=== PATIENT | female | born 1995 | race Caucasian/White ===

== ENCOUNTER → 2021-09-01 | Outpatient (CLI) | payer MEDICAID, OTHER | END | disposition home or self-care (01) | LOC: LABWHC1 20:10 | PROVIDERS: ATTEND Internal Medicine Infectious Disease | DX: Z20.822 Contact with and (suspected) exposure to COVID-19 (principal) | CPT/HCPCS: 87635 ==

== ENCOUNTER → 2021-09-03 | Outpatient (CLI) | payer MEDICAID, OTHER | END | disposition home or self-care (01) | LOC: LABWHC1 11:04 | PROVIDERS: ATTEND Emergency Medicine | DX: Z20.822 Contact with and (suspected) exposure to COVID-19 (principal) | CPT/HCPCS: 87635 ==

== ENCOUNTER → 2022-05-16 | Outpatient (CLI) | payer MEDICAID ==
--- NOTE | 2022-05-17 07:19 | US ---
EXAMINATION TYPE: Transabdominal DATE OF EXAM: 05/16/2022 4:33 PM COMPARISON: NONE CLINICAL HISTORY: Z36.89 ENCOUNTER FOR OTHER SPECIFIED SCR. confirm dates EXAM PERFORMED: Transabdominal (TA) EXAM MEASUREMENTS: GESTATIONAL AGE / DATING Physician Established: Not yet established Dates by LMP: (10 weeks/1 days) EDC: 12/11/22 Dates by First Scan: No previous this is first scan Dates by Current Scan for: (10 weeks/4 days) EDC: 12/08/22 MATERNAL ANATOMY Uterus: 11.0 x 6.0 x 8.0cm Right Ovary: 2.8 x 1.8 x 1.5cm Left Ovary: 3.9 x 3.1 x 1.6cm Post CDS / Adnexa: wnl Presence of free fluid: no GESTATION / SURVEY CRL: 3.6cm (10 weeks/4 days) Yolk Sac (normal less than 6mm): 5.7mm Heart Rate: 167 bpm Rhythm: Normal IUP: Viable IUP Date of LMP: 03/06/22 Beta HcG (if available): Not available at this time IMPRESSION: Single viable intrauterine .
== END | disposition home or self-care (01) ==
LOC: RADUSWWP 16:10
PROVIDERS: ATTEND Obstetrics & Gynecology
DX: Z36.89 Encounter for other specified antenatal screening (principal); Z3A.10 10 weeks gestation of pregnancy
CPT/HCPCS: 76801

== ENCOUNTER → 2022-07-17 | Outpatient (CLI) | payer MEDICAID ==
--- NOTE | 2022-07-18 07:49 | US ---
EXAMINATION TYPE: US OB anatomy transabd DATE OF EXAM: 07/17/2022 COMPARISON: NONE HISTORY: O36.62X0 MATERNAL CARE FOR EXCESS GROWTH, SE Anatomy exam TECHNIQUE: OBTA EXAM MEASUREMENTS: GESTATIONAL AGE / DATING Physician Established: (19 weeks/0 days) EDC: 12/11/2022 Dates by LMP: (19 weeks/0 days) EDC: 12/11/2022 Dates by First Scan: (19 weeks/3 days) EDC: 12/08/2022 Dates by Current Scan for: (19 weeks/1 days) EDC: 12/10/2022 SURVEY IUP: Single PLACENTA: Posterior PREVIA: No previa - post void bladder placental tip was 3.7cm from internal os LIGIA: 16.1 cm Normal CERVICAL LENGTH (transabdominal: norm > 3.0cm): 3.7 cm BIOMETRY PRESENTATION: Variable BPD: 4.2 cm 18 weeks / 6 days HC: 16.2 cm 19 weeks / 0 days AC: 13.4 cm 18 weeks / 6 days FL: 3.1 cm 19 weeks / 4 days ESTIMATED WEIGHT IN GRAMS: 276 grams ESTIMATED WEIGHT IN LBS/OZ: 0 lbs. 10 oz. WEIGHT PERCENTAGE BASED ON ESTABLISHED DATE: 53 % HC/AC: 1.2 Normal FL/AC: 23 Normal HEART RATE: 143 bpm RHYTHM: Normal ANATOMY SEEN (within normal limits): * Lateral Vent (< 1 cm) 0.6 cm * Cisterna Magna (< 1.1 cm) 0.3 cm * Nuchal Fold (< 0.6 cm) 0.2 cm * Cerebellum (varies with age) 19.0 cm Choroid Plexus (bilateral) Midline Falx Cavus Septi Pellucidi Four Chamber Heart Outflow tracts: LVOT/RVOT Stomach Situs Diaphragm Kidneys (bilateral) Bladder Cord Insert Three Vessel Cord Longitudinal Spine Transverse Spine Arms (bilateral) Legs (bilateral) ANATOMY NOT SEEN: Nose / Lips - due to position IMPRESSION: 1. Single intrauterine gestation estimated at 19 weeks 1 day gestation based on current ultrasound. T his have a calculated EDC of 12/10/2022, correlate this with the physician's established EDC 12/11/2022. 2. Cardiac activity measures 143 bpm.
== END | disposition home or self-care (01) ==
LOC: RADUSWWP 15:53
PROVIDERS: ATTEND Obstetrics & Gynecology
DX: O36.62X0 Maternal care for excessive fetal growth, second trimester, not applicable or unspecified (principal); Z3A.19 19 weeks gestation of pregnancy
CPT/HCPCS: 76811

== ENCOUNTER → 2022-11-27 | Outpatient (CLI) | payer MEDICAID ==
--- NOTE | 2022-11-27 11:51 | US ---
EXAMINATION TYPE: US OB >= 14 wk fetus DATE OF EXAM: 11/27/2022 COMPARISON: None CLINICAL HISTORY: O36.5930 SMALL FOR DATES 3RD TRIMESTER, growth, baby has been consistently 2 weeks behind dates TECHNIQUE: OBTA GESTATIONAL AGE / DATING Physician Established: (38 weeks/0 days) EDC: 12/11/2022 Dates by LMP: (38 weeks/0 days) EDC: 12/11/2022 Dates by First Scan: (37 weeks/4 days) EDC: 12/08/2022 Dates by Current Scan: (36 weeks/0 days) EDC: 12/25/2022 SURVEY IUP: Single PLACENTA: Left Fundal PREVIA: No Previa LIGIA: 14.9 cm Normal CERVICAL LENGTH (transabdominal: norm > 3.0cm): 3.8 cm BIOMETRY PRESENTATION: Vertex LIE: Longitudinal BPD: 8.9 cm 36 weeks / 1 days HC: 31.2 cm 34 weeks / 6 days AC: 32.6 cm 36 weeks / 4 days FL: 7.3 cm 37 weeks / 3 days ESTIMATED WEIGHT IN GRAMS: 2968 grams ESTIMATED WEIGHT IN LBS/OZ: 6 lbs. 9 oz. WEIGHT PERCENTAGE BASED ON ESTABLISHED DATES: 25% HC/AC: 1.0 Normal FL/AC: 22.4 Normal HEART RATE: 125 bpm RHYTHM: Normal IMPRESSION: Single viable intrauterine .
== END | disposition home or self-care (01) ==
LOC: RADUSWWP 09:43
PROVIDERS: ATTEND Obstetrics & Gynecology
DX: O36.63X0 Maternal care for excessive fetal growth, third trimester, not applicable or unspecified (principal); Z3A.37 37 weeks gestation of pregnancy
CPT/HCPCS: 76805